=== PATIENT | male | born 1995 | race Caucasian/White ===

== ENCOUNTER 2018-09-05 11:54 | Emergency (ER) | payer MEDICAID, BC ==
[2018-09-05] MEDS: IBUPROFEN 800 MG TAB PO (12:32)
== END 2018-09-05 14:28 | disposition home or self-care (01) ==
LOC: FTE 14:28
DX: S16.1XXA Strain of muscle, fascia and tendon at neck level, initial encounter (principal); V49.49XA Driver injured in collision with other motor vehicles in traffic accident, initial encounter
CPT/HCPCS: 99283; Z7610